=== PATIENT | male | born 1945 | race Caucasian/White ===

== ENCOUNTER 2016-10-19 13:50 | Outpatient (CLI) | payer MEDICARE, BC ==
--- NOTE | 2016-10-19 15:50 | MRI Report ---
EXAM: LEFT KNEE MRI WITHOUT CONTRAST EXAM DATE: 10/19/2016 03:01 PM. CLINICAL HISTORY: CONTUSION OF LEFT KNEE. COMPARISON: LEFT KNEE SERIES 01/03/2016. TECHNIQUE: Multiplanar, multisequence T1-weighted and fluid-sensitive sequences of the knee without c ontrast. Other: None. FINDINGS: Bones: No fractures or subluxations. No marrow edema. No bone lesions. Articular Cartilage: Mild chondromalacia in the medial femoral condyle. Medial Meniscus: A complex tear in the body of the medial meniscus with radial and oblique horizontal components. Lateral Meniscus: The lateral meniscus is intact. Cruciate Ligaments: The anterior and posterior cruciate ligaments are intact. Collateral Ligaments: The medial collateral and lateral collateral ligamentous structures are intact. Tendons: The quadriceps, patellar, semimembranosus, and popliteus tendons are unremarkable. Musculature: No edema or fatty atrophy. Other: No significant effusion. No popliteal cyst. No loose bodies. The medial and lateral retinacul a, patellofemoral ligaments and iliotibial band are intact. No bursitis. The fat pads are unremarkab le. There is smooth tapered termination of the femoral vein without any detectable popliteal vein con tinuation and without any mass lesion as external compression. There is tortuous venous collaterals i n the subcutaneous compartment and also within the muscles. IMPRESSION: 1. A complex tear in the body of the medial meniscus with radial and oblique horizontal components. 2. Collateral and cruciate ligaments are intact. 3. Mild chondromalacia in the medial femoral condyle. 4. There is smooth tapered termination of the femoral vein without any detectable popliteal vein cont inuation and without any mass lesion as external compression. There is tortuous venous collaterals in the subcutaneous compartment and also within the muscles. The cause is uncertain, can be congenital or due to previous surgery. [facility] MUSCULOSKELET[facility] SECTION Referring Provider Line: [phone] SITE ID: [id number]
== END 2016-10-19 13:51 | disposition home or self-care (01) ==
LOC: DI 13:50
PROVIDERS: ATTEND Specialist
DX: S83.242A Other tear of medial meniscus, current injury, left knee, initial encounter (principal); M94.262 Chondromalacia, left knee

== ENCOUNTER 2017-01-04 13:23 | Outpatient (CLI) | payer MEDICARE, BC ==
[2017-01-04 18:20] LABS: BASOPHILS % (AUTO) 0.4 %; EOSINOPHILS # (AUTO) 0.1 10^3/uL (0.0-0.7); EOSINOPHILS % (AUTO) 1.6 %; HCT - HEMATOCRIT 41.7 % (42.0-52.0); LYMPHOCYTES # (AUTO) 1.7 10^3/uL (1.5-3.5); LYMPHOCYTES % (AUTO) 27.6 %; MEAN CORPUSCULAR HEMOGLOBIN 31.8 pg (27.0-31.0); MEAN CORPUSCULAR HGB CONC 33.6 g/dL (32.0-36.0); MEAN CORPUSCULAR VOLUME 94.8 fL (80.0-94.0); MEAN PLATELET VOLUME 7.6 fL (7.4-11.4); MONOCYTES # (AUTO) 0.6 10^3/uL (0.0-1.0); MONOCYTES % (AUTO) 10.6 %; NEUTROPHILS # (AUTO) 3.6 10^3/uL (1.5-6.6); NEUTROPHILS % (AUTO) 59.8 %; RED CELL DISTRIBUTION WIDTH 13.5 % (12.0-15.0)
[2017-01-04 18:46] LABS: ALBUMIN/GLOBULIN RATIO 1.9 (1.0-2.2); BILIRUBIN,TOTAL 0.8 mg/dL (0.2-1.0); CALCIUM 9.1 mg/dL (8.5-10.3); CREATININE 0.9 mg/dL (0.6-1.2); TOTAL PROTEIN 6.4 g/dL (6.7-8.2)
== END 2017-01-04 13:24 | disposition home or self-care (01) ==
LOC: LAB.F 13:23
PROVIDERS: ATTEND Surgery
DX: I50.9 Heart failure, unspecified (principal); R79.9 Abnormal finding of blood chemistry, unspecified
CPT/HCPCS: 36415; 80053; 85025

== ENCOUNTER 2017-01-19 11:42 | Outpatient (CLI) | payer MEDICARE, BC ==
[2017-01-19] MEDS ORDERED: IOPAMIDOL-300 50 ML VIAL ONE (12:07)
[2017-01-19] MEDS ORDERED: IOPAMIDOL-300 100 ML VIAL ONE (12:07)
[2017-01-19] MEDS ORDERED: IOPAMIDOL-300 50 ML VIAL PO ONE (13:18)
[2017-01-19] MEDS ORDERED: IOPAMIDOL-300 100 ML VIAL IVP ONE (13:18)
--- NOTE | 2017-01-19 19:27 | CT Report ---
EXAM: CT ABDOMEN AND PELVIS EXAM DATE: 01/19/2017 01:22 PM. CLINICAL HISTORY: Weight loss, light color stools. COMPARISONS: None. TECHNIQUE: Routine helical CT imaging was performed through the abdomen and pelvis. IV contrast: 100 cc Isovue-300. Enteric contrast: Positive. Reconstructions: Coronal and sagittal. In accordance with CT protocol optimization, one or more of the following dose reduction techniques w ere utilized for this exam: automated exposure control, adjustment of mA and/or KV based on patient s ize, or use of iterative reconstructive technique. FINDINGS: Lung Bases: Unremarkable. Liver: There are 2 hyperdensities each measure approximately 1 cm in diameter within the right hepati c lobe (image 13 series 3, image 16). Gallbladder/Bile Ducts: Unremarkable. Spleen: Normal. Pancreas: Normal. Adrenal Glands: There is a 1.6 x 1.3 cm left adrenal nodule. Kidneys: Normal. No masses or hydronephrosis. Peritoneal Cavity/Bowel: Normal. No free fluid, free air or adenopathy. No masses or acute inflammato ry process. The appendix is well visualized and normal. Pelvic Organs: Normal. The bladder and visualized pelvic organs are within normal limits. Vasculature: No aneurysms or other significant abnormality. Bones: No significant abnormality. Other: None. IMPRESSION: 1. No CT findings to account for the patient's presentation. 2. There are 2 small nonspecific hyperdensities within the right hepatic lobe. 3. 1.6 x 1.3 cm left adrenal nodule is probably a small adenoma. 4. Follow-up multiphase abdominal MRI could be used for further evaluation of the hepatic and adrenal findings. [facility] Referring Provider Line: [phone] SITE ID: [id number]
== END 2017-01-19 11:43 | disposition home or self-care (01) ==
LOC: DI 11:42
PROVIDERS: ATTEND Surgery
DX: R16.0 Hepatomegaly, not elsewhere classified (principal); E27.9 Disorder of adrenal gland, unspecified
CPT/HCPCS: 74177; Q9967

== ENCOUNTER 2017-01-28 07:49 | Day surgery (SDC) | payer MEDICARE, BC ==
[2017-01-28] MEDS ORDERED: LACTATED RINGERS 1,000 ML IV ONE ×3 (07:56→09:18)
[2017-01-28] MEDS ORDERED: MIDAZOLAM 2 MG/2 ML VIAL IVP ONE (09:31)
[2017-01-28] MEDS ORDERED: fentaNYL 100 MCG/2 ML VIAL IVP ONE (09:31)
[2017-01-28 09:57] VITALS: BP 108/68
== END 2017-01-28 07:50 | disposition home or self-care (01) ==
LOC: SDS 07:49
PROVIDERS: ATTEND Surgery
PROC: 0DJD8ZZ Inspection of Lower Intestinal Tract, Via Natural or Artificial Opening Endoscopic (ICD-10-PCS; principal; 2017-01-28 09:00)
DX: Z12.11 Encounter for screening for malignant neoplasm of colon (principal); Z86.010 Personal history of colon polyps; K64.8 Other hemorrhoids; K57.30 Diverticulosis of large intestine without perforation or abscess without bleeding; G47.33 Obstructive sleep apnea (adult) (pediatric)
CPT/HCPCS: G0105; J7120

== ENCOUNTER 2017-12-10 07:16 | Outpatient (CLI) | payer MEDICARE, BC ==
[2017-12-10 10:49] LABS: BASOPHILS % (AUTO) 0.9 %; EOSINOPHILS # (AUTO) 0.3 10^3/uL (0.0-0.7); EOSINOPHILS % (AUTO) 5.5 %; HGB - HEMOGLOBIN 13.7 g/dL (14.0-18.0); LYMPHOCYTES # (AUTO) 1.2 10^3/uL (1.5-3.5); MEAN CORPUSCULAR HGB CONC 34.4 g/dL (32.0-36.0); MEAN CORPUSCULAR VOLUME 92.8 fL (80.0-94.0); MONOCYTES # (AUTO) 0.6 10^3/uL (0.0-1.0); MONOCYTES % (AUTO) 11.7 %; NEUTROPHILS # (AUTO) 2.9 10^3/uL (1.5-6.6); NEUTROPHILS % (AUTO) 57.9 %; PLT - PLATELET COUNT 197 10^3/uL (130-450); RED BLOOD COUNT 4.28 10^6/uL (4.70-6.10); RED CELL DISTRIBUTION WIDTH 13.4 % (12.0-15.0); WHITE BLOOD COUNT 4.9 x10^3/uL (4.8-10.8)
[2017-12-10 11:01] LABS: ALBUMIN/GLOBULIN RATIO 1.6 (1.0-2.2); ALKALINE PHOSPHATASE 43 IU/L (42-121); ALT ALANINE AMINOTRANSFERASE 19 IU/L (10-60); AST ASPARTATE AMINOTRANSFERASE 24 IU/L (10-42); BILIRUBIN,TOTAL 1.3 mg/dL (0.2-1.0); BUN - BLOOD UREA NITROGEN 14 mg/dL (6-20); CALCIUM 9.1 mg/dL (8.5-10.3); CARBON DIOXIDE - CO2 28 mmol/L (21-32); CHLORIDE 102 mmol/L (101-111); CHOL/HDL RATIO 1.9 (<5.0); CHOLESTEROL 176 mg/dL; CREATININE 0.9 mg/dL (0.6-1.2); GFR - MDRD 83 (>89); GLUCOSE 98 mg/dL (70-100); HDL CHOLESTEROL 95 mg/dL; SODIUM 137 mmol/L (135-145); TOTAL PROTEIN 6.5 g/dL (6.7-8.2)
[2017-12-10 11:10] LABS: FREE T3 3.33 pg/mL (2.5-3.9)
[2017-12-10 11:11] LABS: THYROID STIMULATING HORMONE 2.53 uIU/mL (0.34-5.60)
[2017-12-10 11:13] LABS: FREE T4 (FREE THYROXINE) 0.94 ng/dL (0.58-1.64)
[2017-12-10 11:23] LABS: LDL CHOLESTEROL,DIRECT 57 mg/dL; LDLD/HDL RATIO 0.6 (<3.6)
== END 2017-12-10 07:17 | disposition home or self-care (01) ==
LOC: LAB.F 07:16
PROVIDERS: ATTEND Naturopath
DX: Z00.00 Encounter for general adult medical examination without abnormal findings (principal); R53.83 Other fatigue; E03.9 Hypothyroidism, unspecified; E34.9 Endocrine disorder, unspecified; R68.82 Decreased libido
CPT/HCPCS: 36415; 80053; 80061; 82306; 82626; 83721; 84403; 84439; 84443; 84481; 85025

== ENCOUNTER 2019-03-26 10:55 | Outpatient (CLI) | payer MEDICARE, BC ==
--- NOTE | 2019-03-27 10:01 | DEXA Report ---
Reason: OSTEOPOROSIS Procedure Date: 03/26/2019 Accession Number: [id number] / [id number] Procedure: DEX - Dexa Spine and/or Hip CPT Code: Final Report FULL RESULT: EXAM: Dexa Spine and/or Hip DATE: 03/26/2019 11:57 AM CLINICAL HISTORY: OSTEOPOROSIS TECHNIQUE: Dual energy x-ray absorptiometry (DXA) was performed on a [employer] System. Regions measured are the AP Spine, femoral neck, and if needed forearm. COMPARISON: 10/06/2015. In accordance with the International Society for Clinical Densitometry (ISCD) guidelines, data from previous exams may be reanalyzed using current recommendations and techniques. This is done to allow a more accurate basis for comparison with the current study. FINDINGS: The data for the lumbar spine is as follows: BMD (g/cm/cm) T-SCORE Z-SCORE REGION L1 0.938 -1.9 -1.1 L2 0.947 -2.4 -1.7 L3 0.935 -2.5 -1.8 L4 1.073 -1.4 -0.6 TOTAL 0.974 -2.0 -1.3 NOTE: All evaluable vertebrae are used for classification The data for the hip is as follows: BMD (g/cm/cm) T-SCORE Z-SCORE REGION Neck 0.671 -3.1 -1.6 TOTAL 0.717 -2.7 -1.8 NOTE: The femoral neck or total proximal femur, whichever is lowest, is used for classification. DXA RESULTS SUMMARY: Spine SCAN DATE AGE BMD CHANGE VS CHANGE VS PREVIOUS PREVIOUS % [age]/2019 [age] 0.974 -0.007 -0.7 10/06/2015 [age] 0[age]981 * Denotes significant change at the 95% confidence level. Denotes dissimilar scan types or analysis methods. DXA RESULTS SUMMARY: Hip SCAN DATE AGE BMD CHANGE VS CHANGE VS PREVIOUS PREVIOUS % 5/26/2019 73.3 0.717 -0.023 -3.1 10[birth year]06[birth year]2015 [age] 0.740 * Denotes significant change at the 95% confidence level. Denotes dissimilar scan types or analysis methods. IMPRESSION: THE WHO CLASSIFICATION BASED ON THE INTERNATIONAL REFERENCE STANDARD IS OSTEOPOROSIS. THE FRACTURE RISK IS HIGH. RECOMMENDATION: Patients with diagnosis of osteoporosis or osteopenia should have regular bone mineral density assessment. For those eligible for Medicare, routine testing is allowed once every 2 years. Testing frequency can be increased for patients who have rapidly progressing disease or for those who are receiving medical therapy to restore bone mass. COMMENT: World Health Organization (WHO) definitions for osteoporosis and osteopenia: NORMAL BMD: T-score at -1.0 or higher, fracture risk is low OSTEOPENIA BMD: T-score between -1.0 and -2.5, fracture risk is increased. OSTEOPOROSIS BMD: T-score at -2.5 or lower, fracture risk is high. National Osteoporosis Foundation recommends: 1. Obtain adequate dietary calcium (at least 1200 mg per day) and vitamin D (400-800 international units per day). 2. Participate, as appropriate, in regular weightbearing and muscle-strengthening exercise. 3. Avoid tobacco use and reduce alcohol and caffeine intake. 4. For more detailed information see the website at www.NOF.org.
== END 2019-03-26 10:56 | disposition home or self-care (01) ==
LOC: DI 10:55
PROVIDERS: ATTEND Family Medicine
DX: M81.0 Age-related osteoporosis without current pathological fracture (principal)
CPT/HCPCS: 77080

== ENCOUNTER 2020-01-27 09:18 | Outpatient (CLI) | payer MEDICARE, OTHER ==
[2020-01-27 16:02] LABS: HGB - HEMOGLOBIN 13.4 g/dL (14.0-18.0); MEAN CORPUSCULAR HEMOGLOBIN 31.9 pg (27.0-31.0); MEAN CORPUSCULAR HGB CONC 32.7 g/dL (32.0-36.0); MEAN CORPUSCULAR VOLUME 97.6 fL (80.0-94.0); MEAN PLATELET VOLUME 9.3 fL (7.4-11.4); RED BLOOD COUNT 4.2 10^6/uL (4.70-6.10); RED CELL DISTRIBUTION WIDTH 12.9 % (12.0-15.0); WHITE BLOOD COUNT 4.6 x10^3/uL (4.8-10.8)
[2020-01-27 16:38] LABS: ALBUMIN 4.3 g/dL (3.2-5.5); ALBUMIN/GLOBULIN RATIO 1.7 (1.0-2.2); CALCIUM 9.6 mg/dL (8.5-10.3); CREATININE 0.8 mg/dL (0.6-1.2); PHOSPHORUS 3.2 mg/dL (2.5-4.6); TOTAL PROTEIN 6.9 g/dL (6.7-8.2)
[2020-01-30 07:47] LABS: ABNORMAL PROTEIN BAND 1 0.1 g/dL (NONE DETECTED); ALBUMIN 4.1 g/dL (3.8-4.8); ALPHA 1 GLOBULIN 0.3 g/dL (0.2-0.3); ALPHA 2 GLOBULIN 0.6 g/dL (0.5-0.9); BETA 1 GLOBULIN 0.4 g/dL (0.4-0.6); BETA 2 GLOBULIN 0.3 g/dL (0.2-0.5)
== END 2020-01-27 09:19 | disposition home or self-care (01) ==
LOC: LAB.S 09:18
PROVIDERS: ATTEND Family Medicine
DX: M81.0 Age-related osteoporosis without current pathological fracture (principal); Z86.39 Personal history of other endocrine, nutritional and metabolic disease
CPT/HCPCS: 36415; 80053; 81599; 82306; 83516; 83970; 84100; 84155; 84165; 84270; 84403; 85027; 86334

== ENCOUNTER 2020-02-02 08:15 | Outpatient (CLI) | payer MEDICARE, OTHER | END 2020-02-02 23:59 | disposition home or self-care (01) | LOC: LAB.R 08:15 | PROVIDERS: ATTEND Family Medicine | DX: M81.0 Age-related osteoporosis without current pathological fracture (principal); Z86.39 Personal history of other endocrine, nutritional and metabolic disease | CPT/HCPCS: 81599; 82340; 82570 ==

== ENCOUNTER 2020-03-08 14:28 | Outpatient (CLI) | payer MEDICARE, OTHER ==
[2020-03-08 21:04] LABS: PROLACTIN 6.8 ng/mL
[2020-03-08 21:26] LABS: LUTEINIZING HORMONE 11.96 mIU/mL
== END 2020-03-08 14:29 | disposition home or self-care (01) ==
LOC: LAB.S 14:28
PROVIDERS: ATTEND Family Medicine
DX: M81.0 Age-related osteoporosis without current pathological fracture (principal); Z86.39 Personal history of other endocrine, nutritional and metabolic disease; E29.1 Testicular hypofunction
CPT/HCPCS: 36415; 83002; 84146; 84443

== ENCOUNTER 2021-03-10 13:50 | Outpatient (CLI) | payer MEDICARE, OTHER ==
--- NOTE | 2021-03-10 15:49 | DEXA Report ---
PROCEDURE: Dexa Spine and/or Hip INDICATIONS: OSTEOPOROSIS TECHNIQUE: Dual energy x-ray absorptiometry (DXA) was performed on a [employer] System. Regions measur ed are the AP Spine, femoral neck, and if needed forearm. COMPARISON: 03/26/2019. FINDINGS: Lumbar Spine: Bone Mineral Density 0.945 g/cm/cm, T score -2.3. Left Hip: Bone Mineral Density 0.678 g/cm/cm, T score -2.9. Left Femoral Neck: Bone Mineral Density 0.688 g/cm/cm, T score -2.9. (T score greater or equal to -1.0: NORMAL) (T score from -1.1 to -2.4: OSTEOPENIA) (T score less than or equal to -2.5 to: OSTEOPOROSIS) Impression: 1. Lumbar spine osteopenia. 2. Left hip osteoporosis. Patients with diagnosis of osteoporosis or osteopenia should have regular bone mineral density assess ment. For those eligible for Medicare, routine testing is allowed once every 2 years. Testing frequ ency can be increased for patients who have rapidly progressing disease or for those who are receivin g medical therapy to restore bone mass. Reviewed by: Henry Thornton MD on 03/10/2021 3:48 PM PST Approved by: Henry Thornton MD on 03/10/2021 3:48 PM PST Station ID: [id number]
== END 2021-03-10 13:51 | disposition home or self-care (01) ==
LOC: DI 13:50
PROVIDERS: ATTEND Family Medicine
DX: M81.0 Age-related osteoporosis without current pathological fracture (principal); E29.1 Testicular hypofunction

== ENCOUNTER 2021-09-26 08:22 | Outpatient (CLI) | payer MEDICARE, OTHER ==
[2021-09-26 14:11] LABS: BASOPHILS % (AUTO) 0.9 %; EOSINOPHILS # (AUTO) 0.2 10^3/uL (0.0-0.7); EOSINOPHILS % (AUTO) 3.7 %; HCT - HEMATOCRIT 41.7 % (42.0-52.0); HGB - HEMOGLOBIN 13.7 g/dL (14.0-18.0); LYMPHOCYTES # (AUTO) 1.4 10^3/uL (1.5-3.5); LYMPHOCYTES % (AUTO) 30.7 %; MEAN CORPUSCULAR HEMOGLOBIN 32.5 pg (27.0-31.0); MEAN CORPUSCULAR HGB CONC 32.9 g/dL (32.0-36.0); MEAN PLATELET VOLUME 9.5 fL (7.4-11.4); MONOCYTES # (AUTO) 0.6 10^3/uL (0.0-1.0); MONOCYTES % (AUTO) 11.9 %; NEUTROPHILS # (AUTO) 2.4 10^3/uL (1.5-6.6); NEUTROPHILS % (AUTO) 52.6 %; PLT - PLATELET COUNT 200 10^3/uL (130-450); RED BLOOD COUNT 4.21 10^6/uL (4.70-6.10); RED CELL DISTRIBUTION WIDTH 12.9 % (12.0-15.0); WHITE BLOOD COUNT 4.6 x10^3/uL (4.8-10.8)
[2021-09-26 14:37] LABS: THYROID STIMULATING HORMONE 2.26 uIU/mL (0.34-5.60)
[2021-09-26 14:49] LABS: ALBUMIN 4.1 g/dL (3.2-5.5); ALBUMIN/GLOBULIN RATIO 1.5 (1.0-2.2); ALKALINE PHOSPHATASE 47 IU/L (42-121); ALT ALANINE AMINOTRANSFERASE 20 IU/L (10-60); AST ASPARTATE AMINOTRANSFERASE 23 IU/L (10-42); BUN - BLOOD UREA NITROGEN 20 mg/dL (6-20); CALCIUM 9.6 mg/dL (8.5-10.3); CARBON DIOXIDE - CO2 33 mmol/L (21-32); CHLORIDE 101 mmol/L (101-111); CHOLESTEROL 206 mg/dL; CREATININE 0.9 mg/dL (0.6-1.2); GFR - MDRD 83 (>89); GLUCOSE 97 mg/dL (70-100); HDL CHOLESTEROL 104 mg/dL; POTASSIUM 3.8 mmol/L (3.5-5.0); SODIUM 141 mmol/L (135-145); TOTAL PROTEIN 6.9 g/dL (6.7-8.2); TRIGLYCERIDES 36 mg/dL
== END 2021-09-26 08:23 | disposition home or self-care (01) ==
LOC: LAB.S 08:22
PROVIDERS: ATTEND Family Medicine
DX: D12.6 Benign neoplasm of colon, unspecified (principal); G47.30 Sleep apnea, unspecified; R53.83 Other fatigue; E29.1 Testicular hypofunction; F41.9 Anxiety disorder, unspecified; F32.A Depression, unspecified
CPT/HCPCS: 36415; 80053; 80061; 83721; 84443; 85025

== ENCOUNTER 2022-01-17 14:50 | Outpatient (CLI) | payer MEDICARE, OTHER ==
[2022-01-17 16:04] VITALS: BP 108/62
--- NOTE | 2022-01-17 16:04 | SLEEP CARE CONSULTATION ---
Information from patient questionnaire entered by Malou Pires MA. I have reviewed and concur with the information entered by Malou Pires MA. This document represents the service I personally performed and the decisions made by , Madelaine Wagoner ARNP. History of Present Illness Service Date and Time: 01/17/2022 1450 Reason for Visit: New patient, Previously diagnosed sleep apnea Accompanied by: Spouse (STAR) Chief Complaint: reports: Unrefreshed sleep, Excessive daytime sleepiness, Fatigue, Frequent awakenings at night Date of Onset: 04/15/1981 Usual bedtime: 2230 Time it takes to fall asleep: "MINUTES" Snores at night: No Observed to quit breathing while asleep: No Sleeps alone due to snoring: Yes (DUE TO CPAP ) Number of times waking at night: 6 - 7 Reasons for waking at night: reports: Pain (in feet), Bathroom, Other (UNKNOWN REASON; leg cramps/taking magnesium during the night to control) Toss, Turn, or Twitch while sleeping: No Recalls having dreams: Yes Usually gets out of bed at: 0800AM Feels refreshed in the morning: No Morning headache: Yes (OCCASIONALLY) Sleepy or fatigued during the day: Yes Ever fallen asleep while driving: Yes Takes day naps: Yes Dreams during day naps: No Prior sleep studies: Yes Year and Where: 2016 [facility] Additional HPI information: ILDA AGUILAR was previously diagnosed to have unknown, AHI unknown, sleep apnea-hypopnea syndrome and comes in today with spouse to establish care for CPAP therapy. Patient states that his last doctor told him his AHI was 4 and so this did not qualify by Medicare standards for him to have his CPAP paid for. He then prescribed him a CPAP and he has been using the CPAP. He states the only benefit for him is that he can use it to get air because he covers his head with a jacket to cut the light out so that he can sleep longer. His current complaints are unrefreshed sleep, excessive daytime sleepiness, fatigue and frequent night awakenings. He has had a sleep study in 2016 [facility] and was placed on a CPAP machine. Patient states he wakes up every 30 minutes to 1- 1/2 hours through the night. He would like to be able to get a good night sleep. He states he wakes up a lot at night to control his leg cramps by taking magnesium and also feels he has some "neuropathy" in his feet. He uses a hypnosis tape to be able to sleep in the afternoon for naps if tired because he had a bad night's sleep. His states he takes a lot of naps but he denies this. He covers his head to be able to sleep longer to keep light out. He does not feel he is getting good sleep by using the CPAP because he is still constantly getting up at night. His states it does control his snoring and he has not had any pauses in breathing since he started using the CPAP. - Parasomnia Symptoms Ever been unable to move upon waking from sleep: No Walks in sleep: Yes Talks in sleep: No Ever acted out dreams in sleep: No Ever felt weak in the knees when startled or emotional: No Bothered by creepy, crawly, restless sensations in legs: No Problems with memory or concentration: No CPAP Compliance Data - Data Reviewed with Patient Average duration of nightly device use: 8 hours 37 minutes Compliance rate %: 96.3 (181/188 days used) Current pressure setting (cmH2O): 4-7 (5.4 90% avg) Average residual AHI: 5.6 Central apnea: 0 Obstructive apnea: 0.1 Hypopnea: 5.5 Average large leak: 44.7 L/min Compliance data discussion: He has been using [employer] for his supplies. He is using a full face mask, [employer] Mirage Quattro. Subjective Missed days of use due to: reports: other (mailed chip to dr office) Patient concerns: denies: aerophagia, mask discomfort, air blowing in eyes, mask leak noise, condensation in mask/hose, nasal congestion, dry mouth, nose, throat, epistaxis Observed to snore while using device: No Current pressure setting perceived as: comfortable On therapy, patient: reports: other (does not feel it is helping him get better sleep or feel overall rested) Initial [place] Sleepiness Scale score: 4 (01/2022) Past Medical History Past Medical History: reports: Other (Scoliosis) Social History The patient's occupation is a RE. Patient is and lives in [place]. Have you smoked in the past 12 months: No Cigarettes per day (20/pack): 20 Years of smokin Quit date: 1964 Smoking Pack Years: 1.0 Alcohol use: Yes Alcohol amount and frequency: 5-6 during the summer Caffeine use: Yes Caffeine amount and frequency: 1 tea daily Family History Family history of sleep disordered breathing: No (don't know) Allergies and Home Medications Drug allergies reviewed: Yes (NKDA) Home medication list reviewed: Yes (No daily medications) Review of Systems Weight gain over past 5 years: 5 Weight loss over past 5 years: 7 Ear/Nose/Throat: reports: tonsillectomy Endocrine: reports: sluggishness, too hot or cold Musculoskeletal: reports: back pain Physical Exam Vital signs obtained and entered by: KELLY VELARDE Blood Pressure: 108/62 Cuff size: regular Heart Rate: 60 O2 Saturation: 96 Height: 5 ft 9.75 in Weight: 160 lb 4 oz Body Mass Index: 23.1 BMI Classification: Normal Neck circumference: 14 Mouth and throat: narrow oropharynx Soft palate: long Hard palate: normal Uvula: normal Uvula visualization: 50% Mallampati Class II Tongue: normal in size Tonsils: absent bilaterally Heart: regular rate and rhythm Lungs: clear bilaterally Impression and Plan 1. Obstructive Sleep Apnea-Hypopnea Syndrome, unknown, with good treatment compliance and fair apnea control. Patient really would just like to find out why he is constantly waking up during the night. Patient feels that might be something to do his brain waking him up, central nervous system related. I advised him that to have this checked out he would need to see a neurologist. I do not have a copy of his last sleep study. I was able to get a download of his therapy and compliance download. It does show an elevated residual AHI of 5.6 with the central index at 0 and the obstructive index at 0.1. His hypopnea index is elevated at 5.5 with average large leaks at 44.7 L/min. His residual AHI could be falsely elevated because of the average large leaks being so high. I would really like to see his last sleep study to see what his AHI severity was and reason he was placed on a CPAP. If we cannot obtain a copy, I discussed having him repeat a sleep study in our sleep lab. He was opposed to doing another study but may concede if necessary. I will have him schedule a follow up to review my findings once I am able to obtain his sleep study for a plan going forwar. I will have him continue CPAP therapy as currently ordered. Patient's apnea severity and rationale for treatment to reduce apnea, improve sleep quality and reduce cardiovascular and cerebrovascular events was reviewed. * Continue auto CPAP pressure at 4-7 cmH2O * Obtain last sleep study to verify diagnosis and severity * Notify me if snoring with mask or feeling that the pressure is too much or too little * Call this office if any problems using CPAP * Return for follow up in 1 month, or sooner if concerns arise Counseling Topics: Spare mask Visit Type: In Office Other Participants: Spouse/Significant Other (Star) Time Spent with Patient (minutes): 44 Provider Statement: I spent 100% of the Face to Face Visit with the patient with greater than 50% spent counseling the patient and coordination of care.
== END 2022-01-17 14:51 | disposition home or self-care (01) ==
LOC: SC 14:50
PROVIDERS: ATTEND Nurse Practitioner Family
DX: G47.33 Obstructive sleep apnea (adult) (pediatric) (principal); Z87.891 Personal history of nicotine dependence
CPT/HCPCS: 99203; G0463; 99212

== ENCOUNTER 2022-02-09 12:14 | Outpatient (CLI) | payer MEDICARE, OTHER | END 2022-02-09 12:15 | disposition home or self-care (01) | LOC: LAB.S 12:14 | PROVIDERS: ATTEND Internal Medicine Endocrinology, Diabetes & Metabolism | DX: M81.0 Age-related osteoporosis without current pathological fracture (principal) | CPT/HCPCS: 36415; 82306; 83970; 84100 ==

== ENCOUNTER 2022-02-20 15:03 | Outpatient (CLI) | payer MEDICARE, OTHER ==
[2022-02-20 16:06] VITALS: BP 128/64
--- NOTE | 2022-02-20 16:06 | SLEEP CARE CONSULTATION ---
Information from patient questionnaire entered by Marizol Campos. I have reviewed and concur with the information entered by Marizol Campos. This document represents the service I personally performed and the decisions made by me, Madelaine Wagoner ARNP. History of Present Illness Service Date and Time: 02/20/2022 1503 Previous diagnosis: Obstructive Sleep Apnea-Hypopnea Syndrome, Other (Upper Airway Resistance Syndrome) AHI: 4 ((REM sleep AHI 9) UARS) Reason for follow up: one month (F/U) Accompanied by: Spouse (Evonne) Equipment type: CPAP Equipment obtained from: [employer] (getting supplies) Backup mask available: Yes (old mask) Prior sleep studies: Yes Year and Where: 2015 [facility] HPI additional information: ILDA AGUILAR was diagnosed to have very mild, AHI 4, REM AHI 9 and Upper Airway Resistance Syndrome, obstructive sleep apnea-hypopnea syndrome and returned today with spouse for CPAP therapy one month follow-up. Sleep Study - Results Prior sleep studies: Yes Year and Where: 2015 [facility] CPAP Compliance Data - Data Reviewed with Patient Average duration of nightly device use: 8 HRS, 42 MIN, 59 SEC Compliance rate %: 100 (01/21/2022-02/19/2022) Current pressure setting (cmH2O): 4-7 Average residual AHI: 5.6 (RERA 1.7) Central apnea: 0.2 Obstructive apnea: 0.7 Hypopnea: 4.7 Average large leak: 25 mins 8 secs Subjective Patient concerns: reports: mask leak noise (air escaping around mask). denies: aerophagia, mask discomfort, air blowing in eyes, condensation in mask/hose, nasal congestion, dry mouth, nose, throat, epistaxis Observed to snore while using device: No Current pressure setting perceived as: comfortable On therapy, patient: reports: sleeping better, awakening more refreshed, being more awake and alert during the day, more rested overall. denies: drowsiness while driving Initial [place] Sleepiness Scale score: 4 (01/2022) Current [place] Sleepiness Scale score: 4 Allergies and Home Medications Drug allergies reviewed: Yes (NKDA) Home medication list reviewed: Yes (no changes) Review of Systems Review of systems same as previous: Yes (no changes) Physical Exam Vital signs obtained and entered by: MARIZOL Correia MA Blood Pressure: 128/64 (LEFT ARM) Cuff size: regular Heart Rate: 68 O2 Saturation: 97 Height: 5 ft 9.75 in Weight: 163 lb 9.6 oz Body Mass Index: 23.6 BMI Classification: Normal Impression and Plan 1. Upper Airway Resistance Syndrome and very mild Obstructive sleep apnea with good treatment compliance and fair apnea control. On CPAP therapy, the patient has better sleep quality and is more rested overall. I was finally able to review patient's last sleep study dated 04/28/2015 at [facility]. Basically, it shows an average AHI of 4 with REM AHI at 9. He did not spend very much time on his back but when he did he had 60 AHI noted. Patient was diagnosed with upper airway resistance syndrome and obstructive sleep apnea. Patient initially had come in complaining of interrupted sleep causing him to need to sleep longer. He is waking up 4-7 times a night and it can take 15 minutes to 1 hour for him to fall asleep. He gets up to bathroom. He will take magnesium to control leg cramps at that time. He will use a tennis ball on his back (history of scoliosis) to work out the knots. He will then lay down to go back to sleep. If he does not fall asleep within the 15-20 minutes he will use a hypnosis tape to help him fall asleep (which usually works). He will also takes scheduled naps in mid-morning and mid-afternoon when he feels fatigued. He thinks he may have autism which could affect his ability to sleep. He would like some further help in seeing which direction he should go to help him improve his sleep. I am not sure if we should do another sleep study or to have him try medications to help him sleep. I am going to have him follow up with Dr. Bunch, our medical laboratory assistant, to see if he has further recommendations for this patient. He voiced understanding and agreement with plan. Patient's apnea severity and rationale for treatment to reduce apnea, improve sleep quality and reduce cardiovascular and cerebrovascular events was reviewed. * Continue auto CPAP pressure at 4-7 cmH2O * Notify me if snoring with mask or feeling that the pressure is too much or too little * Call this office if any problems using CPAP * Return for follow up in 1-[address] Bunch, or sooner if concerns arise Counseling Topics: Spare mask Visit Type: In Office Other Participants: Spouse/Significant Other Time Spent with Patient (minutes): 30 Provider Statement: I spent 100% of the Face to Face Visit with the patient with greater than 50% spent counseling the patient and coordination of care.
== END 2022-02-20 15:04 | disposition home or self-care (01) ==
LOC: SC 15:03
PROVIDERS: ATTEND Nurse Practitioner Family
DX: G47.33 Obstructive sleep apnea (adult) (pediatric) (principal); G47.8 Other sleep disorders
CPT/HCPCS: 99214; G0463; 99212

== ENCOUNTER 2022-03-16 08:00 | Outpatient (CLI) | payer MEDICARE, OTHER ==
[2022-03-19 15:08] LABS: GIARDIA LAMBLIA AG EIA Negative (Negative)
== END 2022-03-16 23:59 | disposition home or self-care (01) ==
LOC: LAB.S 08:00
PROVIDERS: ATTEND Physician Assistant Medical
DX: R19.7 Diarrhea, unspecified (principal)
CPT/HCPCS: 87045; 87046; 87177; 87329; 87427

== ENCOUNTER 2022-03-27 10:39 | Outpatient (CLI) | payer MEDICARE, OTHER ==
--- NOTE | 2022-03-27 17:46 | DEXA Report ---
PROCEDURE: Dexa Spine and/or Hip INDICATIONS: OSTEOPOROSIS TECHNIQUE: Dual energy x-ray absorptiometry (DXA) was performed on a [employer] System. Regions measur ed are the AP Spine, femoral neck, and if needed forearm. COMPARISON: None. FINDINGS: Lumbar Spine: Bone Mineral Density 0.950 g/cm/cm,T score -2.3, Left Femoral Neck: Bone Mineral Density 0.653 g/cm/cm, T score -3.2, Left Hip: Bone Mineral Density 0.687 g/cm/cm,T score -2.9, (T score greater or equal to -1.0: NORMAL) (T score from -1.1 to -2.4: OSTEOPENIA) (T score less than or equal to -2.5 to: OSTEOPOROSIS) Impression: 1. Stable osteoporosis Patients with diagnosis of osteoporosis or osteopenia should have regular bone mineral density assess ment. For those eligible for Medicare, routine testing is allowed once every 2 years. Testing frequ ency can be increased for patients who have rapidly progressing disease or for those who are receivin g medical therapy to restore bone mass. Reviewed by: Drew Villalta MD on 03/27/2022 4:45 PM [place] Approved by: Drew Villalta MD on 03/27/2022 4:45 PM [place] Station ID: [id number]
== END 2022-03-27 10:40 | disposition home or self-care (01) ==
LOC: DI 10:39
PROVIDERS: ATTEND Family Medicine
DX: M81.0 Age-related osteoporosis without current pathological fracture (principal)

== ENCOUNTER 2022-06-08 12:32 | Outpatient (CLI) | payer MEDICARE, OTHER ==
[2022-06-08 19:47] LABS: BASOPHILS % (AUTO) 0.7 %; EOSINOPHILS # (AUTO) 0.2 10^3/uL (0.0-0.7); EOSINOPHILS % (AUTO) 2.6 %; HCT - HEMATOCRIT 40.4 % (42.0-52.0); HGB - HEMOGLOBIN 12.9 g/dL (14.0-18.0); LYMPHOCYTES # (AUTO) 1.6 10^3/uL (1.5-3.5); LYMPHOCYTES % (AUTO) 26.3 %; MEAN CORPUSCULAR HEMOGLOBIN 31.1 pg (27.0-31.0); MEAN CORPUSCULAR HGB CONC 31.9 g/dL (32.0-36.0); MEAN CORPUSCULAR VOLUME 97.3 fL (80.0-94.0); MEAN PLATELET VOLUME 9.5 fL (7.4-11.4); MONOCYTES # (AUTO) 0.8 10^3/uL (0.0-1.0); MONOCYTES % (AUTO) 13.6 %; NEUTROPHILS # (AUTO) 3.5 10^3/uL (1.5-6.6); NEUTROPHILS % (AUTO) 56.6 %; PLT - PLATELET COUNT 239 10^3/uL (130-450); RED BLOOD COUNT 4.15 10^6/uL (4.70-6.10); RED CELL DISTRIBUTION WIDTH 12.9 % (12.0-15.0); WHITE BLOOD COUNT 6.1 x10^3/uL (4.8-10.8)
[2022-06-08 20:02] LABS: ALBUMIN 3.9 g/dL (3.2-5.5); ALBUMIN/GLOBULIN RATIO 1.4 (1.0-2.2); BILIRUBIN,TOTAL 0.8 mg/dL (0.2-1.0); CALCIUM 9.5 mg/dL (8.5-10.3); CREATININE 0.8 mg/dL (0.6-1.2); TOTAL PROTEIN 6.7 g/dL (6.7-8.2)
== END 2022-06-08 12:33 | disposition home or self-care (01) ==
LOC: LAB 12:32 → LAB.S 12:33
PROVIDERS: ATTEND Family Medicine
DX: R19.7 Diarrhea, unspecified (principal)
CPT/HCPCS: 36415; 80053; 85025

== ENCOUNTER 2022-08-22 14:42 | Outpatient (CLI) | payer MEDICARE, OTHER ==
--- NOTE | 2022-08-22 17:31 | XRAY Report ---
PROCEDURE: Foot 3 View RT INDICATIONS: ALLODYNIA TECHNIQUE: 3 views of the foot were acquired. COMPARISON: None. FINDINGS: Bones: Mild hallux valgus is seen. Mild osteoarthritic changes are noted throughout right foot. No f ractures or dislocations. No suspicious bony lesions. Soft tissues: Mild soft tissue swelling over medial aspect of first MTP joint is seen. No suspicious soft tissue calcifications or masses. IMPRESSION: Mild hallux valgus with overlying soft tissue bunion. Mild midfoot and forefoot joint osteoarthritis. No acute fracture or dislocation. Reviewed by: Eliceo Lewis MD on 08/22/2022 5:30 PM PDT Approved by: Eliceo Lewis MD on 08/22/2022 5:30 PM PDT Station ID: [id number]
== END 2022-08-22 14:43 | disposition home or self-care (01) ==
LOC: DI 14:42
PROVIDERS: ATTEND Family Medicine
DX: R20.3 Hyperesthesia (principal); M20.11 Hallux valgus (acquired), right foot; M21.611 Bunion of right foot; M19.071 Primary osteoarthritis, right ankle and foot

== ENCOUNTER 2023-08-28 12:29 | Outpatient (CLI) | payer MEDICARE, OTHER | END 2023-08-28 12:30 | disposition home or self-care (01) | LOC: DI 12:29 | PROVIDERS: ATTEND Internal Medicine Cardiovascular Disease | DX: R53.83 Other fatigue (principal); I45.10 Unspecified right bundle-branch block; I51.7 Cardiomegaly; I87.8 Other specified disorders of veins | CPT/HCPCS: 93307 ==

== ENCOUNTER 2023-09-12 09:07 | Outpatient (CLI) | payer MEDICARE, OTHER ==
[2023-09-12 14:37] LABS: BASOPHILS % (AUTO) 0.6 %; EOSINOPHILS # (AUTO) 0.2 10^3/uL (0.0-0.7); EOSINOPHILS % (AUTO) 3.1 %; HCT - HEMATOCRIT 39.7 % (42.0-52.0); HGB - HEMOGLOBIN 12.7 g/dL (14.0-18.0); LYMPHOCYTES # (AUTO) 1.4 10^3/uL (1.5-3.5); LYMPHOCYTES % (AUTO) 27.4 %; MEAN CORPUSCULAR HEMOGLOBIN 31.8 pg (27.0-31.0); MEAN CORPUSCULAR VOLUME 99.5 fL (80.0-94.0); MEAN PLATELET VOLUME 9.7 fL (7.4-11.4); MONOCYTES # (AUTO) 0.7 10^3/uL (0.0-1.0); MONOCYTES % (AUTO) 12.5 %; NEUTROPHILS # (AUTO) 2.9 10^3/uL (1.5-6.6); NEUTROPHILS % (AUTO) 56.2 %; PLT - PLATELET COUNT 210 10^3/uL (130-450); RED BLOOD COUNT 3.99 10^6/uL (4.70-6.10); RED CELL DISTRIBUTION WIDTH 12.9 % (12.0-15.0); WHITE BLOOD COUNT 5.2 x10^3/uL (4.8-10.8)
[2023-09-12 15:37] LABS: ALBUMIN 4.1 g/dL (3.2-5.5); ALBUMIN/GLOBULIN RATIO 1.6 (1.0-2.2); BILIRUBIN,TOTAL 0.7 mg/dL (0.2-1.0); CALCIUM 9.7 mg/dL (8.5-10.3); CREATININE 0.9 mg/dL (0.6-1.3); POTASSIUM 3.8 mmol/L (3.5-4.5); TOTAL PROTEIN 6.6 g/dL (6.4-8.9)
== END 2023-09-12 09:08 | disposition home or self-care (01) ==
LOC: LAB.S 09:07
PROVIDERS: ATTEND Family Medicine
DX: K21.9 Gastro-esophageal reflux disease without esophagitis (principal); Z12.5 Encounter for screening for malignant neoplasm of prostate; R20.3 Hyperesthesia; R19.7 Diarrhea, unspecified; Z78.9 Other specified health status; N40.1 Benign prostatic hyperplasia with lower urinary tract symptoms; G47.9 Sleep disorder, unspecified; G47.30 Sleep apnea, unspecified; G25.81 Restless legs syndrome; E29.1 Testicular hypofunction
CPT/HCPCS: 36415; 80053; 85025